=== PATIENT | female | born 1985 | race Caucasian/White ===

== ENCOUNTER 2019-05-06 16:53 | Inpatient (IN) | payer OTHER ==
[~2019-05-06] VITALS: Ht 162.6 cm; Wt 81.6 kg
[~2019-05-06 16:53] MED LIST: ASPI-496 PO; DEXAMETHASONE 4 MG/ML, 1ML ONE; KETOROLAC 30 MG/1 ML ONE; ONDANSETRON 2MG/ML, 2ML ONE; PROPOFOL 10 MG/ML, 20ML ONE; ROCURONIUM 10MG/ML,5ML ONE; SUGAMMADEX 200 MG/2 ML IVPush ONE; [UNRECOGNIZED DRUG - CODE] IV
[2019-05-06 18:22] LABS: BASOPHILS # (AUTO) 0.06 x10^3/uL (0-0.1); BASOPHILS % (AUTO) 1 % (0-1); EOSINOPHILS # (AUTO) 0.14 x10^3/uL (0-0.4); EOSINOPHILS % (AUTO) 2 % (1-7); LYMPHOCYTES # (AUTO) 2.44 x10^3/uL (1-3.4); LYMPHOCYTES % (AUTO) 31 % (22-44); MD NO; MEAN CORPUSCULAR HGB CONC 33.6 g/dL (32.4-35.8); MEAN CORPUSCULAR VOLUME 95.2 fL (80-100); MEAN PLATELET VOLUME 7.4 fL (7.4-10.4); MONOCYTES # (AUTO) 0.61 x10^3/uL (0.2-0.8); MONOCYTES % (AUTO) 8 % (2-9); NEUTROPHILS # (AUTO) 4.51 x10^3/uL (1.8-6.8); NEUTROPHILS % (AUTO) 58 % (42-75); PLATELET COUNT 370 x10^3/uL (130-400); RED BLOOD COUNT 4.29 x10^6/uL (3.82-5.3); RED CELL DISTRIBUTION WIDTH 12.7 % (9.6-15.2)
[2019-05-06 18:32] LABS: ALANINE AMINOTRANSFERASE 20 U/L (12-78); ALBUMIN 3.9 g/dL (3.4-5.0); ANION GAP 6 mmol/L (5-15); CALCIUM 8.7 mg/dL (8.5-10.1); CHLORIDE 109 mmol/L (98-107); CREATININE 0.63 mg/dL (0.55-1.02)
--- NOTE | 2019-05-06 18:34 | NUR ---
PT SCHEDULED FOR SURGERY. LAST ORAL INTAKE: "A COUPLE OF PRETZLES IN THE WAITING ROOM" [employer] INSPECTION [employer] TESTING.
[2019-05-06 18:35] LABS: ALKALINE PHOSPHATASE 61 U/L (45-117); BILIRUBIN,TOTAL 0.8 mg/dL (0.2-1.0); TOTAL PROTEIN 8.1 g/dL (6.4-8.2)
[2019-05-06 18:40] VITALS: BP 108/48
[2019-05-06] MEDS ORDERED: BUPIVACAINE/PF 0.25% ONE (19:38)
[2019-05-06] MEDS ORDERED: EPINEPHRINE 1 MG/ML, 1ML ONE (19:38)
[2019-05-06] MEDS ORDERED: SILVER NITRATE STICK TP ONE (19:39)
[2019-05-06] MEDS ORDERED: MIDAZOLAM 1 MG/ML, 2ML ONE (20:08)
[2019-05-06] MEDS ORDERED: FENTANYL PF 100 MCG/2ML ONE ×2 (20:08→21:48)
[2019-05-06] MEDS ORDERED: MEPERIDINE/PF 25MG/0.5ML IVPush PRN (21:00)
[2019-05-06] MEDS ORDERED: OXYcodone 5 MG/5 ML ORAL.SOL UDC PO PRN (21:00)
[2019-05-06] MEDS ORDERED: ONDANSETRON 2MG/ML, 2ML IV PRN (21:00)
[2019-05-06] MEDS ORDERED: LORazepam 2 MG/ML, 1ML IVPush PRN (21:00)
[2019-05-06] MEDS ORDERED: ACETAMINOPHEN 325 MG TABLET PO PRN (21:00)
[2019-05-06] MEDS ORDERED: HYDROmorphone 2 MG/ML, 1ML IVPush PRN (21:00)
[2019-05-06] MEDS ORDERED: FENTANYL PF 100 MCG/2ML IV PRN (21:00)
[2019-05-06] MEDS ORDERED: hydrALAzine 20 MG/ML, 1ML IV PRN (21:00)
[2019-05-06] MEDS ORDERED: METOCLOPRAMIDE 5 MG/ML, 2ML IV PRN (21:00)
[2019-05-06] MEDS ORDERED: MEPERIDINE/PF 25MG/ML,1ML ONE (21:31)
[2019-05-06] MEDS ORDERED: OXYcodone 5 MG/5 ML ORAL.SOL UDC ONE (21:32)
[2019-05-06] MEDS ORDERED: IBUP200T49 PO (23:20)
[2019-05-06] MEDS ORDERED: OXYC-302 PO (23:21)
== END 2019-05-07 00:15 | disposition home or self-care (01) | DRG 819 ==
LOC: OR 20:35 → EDIP 21:25 → 4NOR 21:29
PROVIDERS: ADMIT Student in an Organized Health Care Education/Training Program; ATTEND Student in an Organized Health Care Education/Training Program
PROC: 10T24ZZ Resection of Products of Conception, Ectopic, Percutaneous Endoscopic Approach (ICD-10-PCS; 2019-05-06)
PROC: 0UPD7HZ Removal of Contraceptive Device from Uterus and Cervix, Via Natural or Artificial Opening (ICD-10-PCS; 2019-05-06)
PROC: 0UB74ZZ Excision of Bilateral Fallopian Tubes, Percutaneous Endoscopic Approach (ICD-10-PCS; principal; 2019-05-06 20:00)
DX: O00.102 Left tubal pregnancy without intrauterine pregnancy (principal); Z82.3 Family history of stroke; Z88.2 Allergy status to sulfonamides; Z90.49 Acquired absence of other specified parts of digestive tract; Z30.2 Encounter for sterilization
CPT/HCPCS: 36415; 76830; 80053; 84702; 85025; 88305; 99285; G0378; J0171; J1100; J1885; J2175; J2250; J2405; J2704; J3010; J3490